=== PATIENT | female | born 2000 ===

== ENCOUNTER 2025-03-02 22:43 | Emergency (ER) | payer OTHER ==
[~2025-03-02] VITALS: Ht 154.9 cm; Wt 55.3 kg
[2025-03-03] MEDS ORDERED: NS 1,000 ML IV ONE (00:32)
[2025-03-03] MEDS ORDERED: NS 1,000 ML IV SCH (00:35)
[2025-03-03] MEDS ORDERED: Prochlorperazine Edisylate 10 mg Vial IV ONE (00:45)
[2025-03-03] MEDS ORDERED: DiphenhydrAMINE HCl 50 MG/ML 1ML Vial IV ONE (00:45)
[2025-03-03] MEDS ORDERED: Dexamethasone Sod Phos 10 MG/ML 1ML VIAL IV ONE (00:45)
== END 2025-03-03 04:05 | disposition home or self-care (01) ==
LOC: ER 22:43
DX: G43.909 Migraine, unspecified, not intractable, without status migrainosus (principal)
CPT/HCPCS: 70450; 96361; 96374; 96375; 99284; A9270; J0780; J1100; J1200; J7030